=== PATIENT | female | born 1965 | race Caucasian/White ===

== ENCOUNTER 2017-06-25 13:50 | Day surgery (SDC) | payer BC ==
[~2017-06-25 13:50] MED LIST: CEFAZOLIN 1 GM INJ; NEOSTIGMINE 3 MG/3 ML SYRINGE
[2017-06-25] MEDS ORDERED: MEPERIDINE 100 MG INJ (16:02)
[2017-06-25] MEDS ORDERED: PROPOFOL 20 ML (16:02)
[2017-06-25] MEDS ORDERED: SUCCINYLCHOLINE CHLORIDE 100 MG/5 ML SYG IV (16:02)
[2017-06-25] MEDS ORDERED: GLYCOPYRROLATE 0.4 MG INJ (16:02)
[2017-06-25] MEDS ORDERED: ROCURONIUM 50 MG INJ (16:02)
[2017-06-25] MEDS ORDERED: LIDOCAINE 2% (SDV) 5 ML INJ (16:02)
[2017-06-25] MEDS: CEFAZOLIN 1 GM/50 ML (PMX) 50 ML IVPB (16:25)
[2017-06-25] MEDS: BUPIVACAINE 0.5%/EPI (SDV) 30 ML INJ (16:32)
[2017-06-25] MEDS ORDERED: hydrALAzine 20 MG INJ (16:40)
[2017-06-25] MEDS: POLYMYXIN/BACITRACIN 1L IRRIG (16:53)
[2017-06-25] MEDS: BACITRACIN/POLYMYXIN 28.35 GM OINT TOP (16:53)
[2017-06-25] MEDS ORDERED: METOCLOPRAMIDE 10 MG INJ (16:57)
[2017-06-25] MEDS ORDERED: ONDANSETRON 4 MG INJ (16:57)
[2017-06-25] MEDS: HYDROmorphONE (0.2 MG/ML) 10ML SYG IV (17:50)
[2017-06-25] MEDS: ONDANSETRON 4 MG INJ IV (17:50)
[2017-06-25] MEDS ORDERED: LABETALOL HCL 20MG INJ IV (18:00)
[2017-06-25] MEDS ORDERED: MIDAZOLAM 1 MG/ML 2 ML INJ IV (18:00)
[2017-06-25] MEDS ORDERED: FENTAnyl 50 MCG/ML VIAL IV ×3 (18:00)
[2017-06-25] MEDS ORDERED: MEPERIDINE 25 MG INJ IV (18:00)
[2017-06-25] MEDS ORDERED: DIPHENHYDRAMINE 50 MG INJ IV (18:00)
[2017-06-25] MEDS ORDERED: HYDROmorphONE (0.2 MG/ML) 10ML SYG IV ×2 (18:00)
[2017-06-25] MEDS ORDERED: METOCLOPRAMIDE 10 MG INJ IV (18:00)
[2017-06-25] MEDS ORDERED: hydrALAzine 20 MG INJ IV (18:00)
[2017-06-25] MEDS ORDERED: EPHEDrine SULFATE 50 MG/5 ML SYG IV (18:00)
[2017-06-25] MEDS ORDERED: OXYCODONE/ACETAMINOPHEN (5/325) TAB PO ×2 (18:00)
== END 2017-06-25 19:05 | disposition home or self-care (01) ==
LOC: SDS 13:50
DX: M75.101 Unspecified rotator cuff tear or rupture of right shoulder, not specified as traumatic (principal); E66.9 Obesity, unspecified; Z68.31 Body mass index [BMI] 31.0-31.9, adult
CPT/HCPCS: 29826; 84703